=== PATIENT | male | born 1945 | race Caucasian/White ===

== ENCOUNTER 2016-12-30 21:05 | Emergency (ER) | payer OTHER ==
--- NOTE | ~2016-12-30 | CT4 ---
[facility] A Service of [facility] RADIOLOGY TEXT RESULTS PATIENT: ARLEEN MAURICE LOCATION: [facility] : 47 UNIT #: [id number] AGE: [address]: Lora Chavez MD SEX: M ORDER DR: [id number] [facility]. [place], [place] [address] [id number] MR#: [id number] Acc #: [id number] NAME: ARLEEN MAURICE. : 1945 SEX: M STUDY DATE/TIME: 12/31/2016 2:43 UNIT: ALEXA ROOM: STUDY DESCRIPTION: CT Abd and Pelv Wo Cont Attending Physician: Lora Chavez M.D. Ordering Physician: Lora Chavez M.D. Primary Care Physician: No Primary Care Physician MEDICAL IMAGING REPORT This report is preliminary unless electronic signature is present EXAM CT abdomen and pelvis INDICATIONS Urinary tract infection. Pain with urination. Decreased urine output. Left flank pain. TECHNIQUE CT abdomen and pelvis without contrast. Coronal and sagittal reconstructions were obtained. This CT exam was performed with one or more of the following radiation dose reduction techniques: automatic exposure control, adjustment of mA and/or kV according to patient size, and iterative reconstruction. COMPARISON None available. FINDINGS There is emphysema in the lung bases. The kidneys are symmetric in size. There is no hydronephrosis or ureteral calculi. Noncontrasted evaluation of the remaining solid abdominal organs is within normal limits. The gallbladder is surgically absent. The bowel is not dilated. An infrarenal abdominal aortic aneurysm measures 3.3 cm. There are some colonic diverticula. The bowel is not distended. The appendix is at the upper limits of normal; however, there are no inflammatory changes adjacent to the appendix. PELVIS: There is diffuse wall thickening of the urinary bladder. Please correlate with urinalysis to identify cystitis. There are some dystrophic calcific calcifications in the prostate. No enlarged pelvic or inguinal [facility] A Service of [facility] RADIOLOGY TEXT RESULTS PATIENT: ARLEEN MAURICE LOCATION: [facility] : 47 UNIT #: [id number] AGE: [address]: Lora Chavez MD SEX: M ORDER DR: lymph nodes. No acute osseous abnormalities. IMPRESSION 1. Mild wall thickening associated with the urinary bladder. Please correlate for any evidence of cystitis. 2. 3.3-cm infrarenal abdominal aortic aneurysm. 3. Diverticulosis. Dictated by... Allen Gaspar M.D. THIS IS AN ELECTRONICALLY VERIFIED REPORT Allen Gaspar M.D. at 01/01/2017 12:49 AM OMAR/cassi TD: 12/31/2016 16:39 JOB #: [id number] MEDICAL IMAGING REPORT Page 1 of 1 COPY
[~2016-12-30 21:05] MED LIST: ACETAMINOPHEN325 MG PO; ALBUTEROL17 G1 IH; ALBUTEROL17 GM INH; ALPRAZOLAM ER2 MG PO; ALPRAZOLAM PO; AMITRIPTYLINE150 MG PO; AMITRYPTYLINE PO; ANEXSIA 7.5/3251 TA1 PO; CALCIUM; CERTAGEN PO; CIPRO PO; COMBIVENT MININEB INH; GINKO BILOBA; HYDROCODON-ACE1 EAC1 PO; LEVAQUIN; LEVAQUIN PO; LEVAQUIN750 M1 PO; LIPITOR PO; LISINOPRIL PO; LISINOPRIL20 MG PO; LORTAB 7.5-3251 EACH PO; LORTAB 7.5-5001 TAB PO; MEDROL PO; MUCINEX DM1 TAB.SR . PO; OMEPRAZOLE20 M2 PO; OXYCONTIN PO; OXYCONTIN20 MG PO; OXYCONTIN40 MG PO; PROAIR HFA8.5 GM IH; ROBITUSSIN COUG1 CAP PO; SPIRIVA18 MCG INH; SYMBICORT INH; VIT E PO; VITAMIN B-12; XANAX2 MG PO; [UNRECOGNIZED DRUG - REMARK]
[2016-12-31 01:14] LABS: URINE SOURCE CLEAN CATCH
[2016-12-31 01:38] LABS: URINE APPEARANCE CLOUDY; URINE BILIRUBIN NEG (NEG); URINE BLOOD 2+ (NEG); URINE COLOR YELLOW; URINE GLUCOSE 100 MG/DL (NEG); URINE KETONE TRACE (NEG); URINE LEUKOCYTE ESTERASE 2+ (NEG); URINE NITRATE POS (NEG); URINE PH 6.5 (5-8); URINE PROTEIN 2+ (NEG)
[2016-12-31 01:41] LABS: CULTURE INDICATED? YES; URINE BACTERIA AUWI 4+ (NEGATIVE); UWBCS1 AUWI 200-300 (0-5)
[2016-12-31 01:51] LABS: URINE SQUAMOUS EPITHELIAL CELL MODERATE /[HPF]
[2016-12-31 01:57] LABS: URINE CRYSTALS TRIPLE PHOSPHATE /[HPF]
[2016-12-31 01:59] LABS: ALBUMIN SERUM 3.7 g/dL (3.5-5.0); BILIRUBIN,INDIRECT 0.4 mg/dL (0.0-0.9); BILIRUBIN,TOTAL 0.5 mg/dL (0.2-2.0); CALCIUM SERUM 8.8 mg/dL (8.4-10.2); CREATININE SERUM 0.8 mg/dL (0.6-1.4); GLOM FILT RATE Estimated 90.5 mL/min (>60); PROTEIN TOTAL SERUM 6.4 g/dL (6.0-8.3)
[2016-12-31 02:00] LABS: BILIRUBIN, DIRECT 0.1 mg/dL (0.0-0.2)
[2016-12-31 02:22] LABS: BASOPHIL# 0.1 X10e3 (0-0.3); BASOPHIL% 0.8 % (0-2.5); EOSINOPHIL# 0.2 X10e3 (0-0.7); HEMATOCRIT 42.6 % (38.0-50.0); HEMOGLOBIN 13.6 gm/dL (13.0-16.0); LYMPHOCYTE# 1.5 X10e3 (1.0-3.5); LYMPHOCYTE% 16.1 % (17.0-45.0); MEAN CELL VOLUME 92.8 FL (83-96); MEAN CORPUSCULAR HEMOGLOBIN 29.6 PG (28-34); MEAN CORPUSCULAR HGB CONC 31.9 g/dL (30-36); MEAN PLATELET VOLUME 7.7 FL (6.5-11.5); MONOCYTE# 0.7 X10e3 (0-1.0); MONOCYTE% 7.4 % (3.0-12.0); NEUTROPHIL# 6.7 X10e3 (1.5-7.1); NEUTROPHIL% 73.7 % (40-75); PLATELET COUNT 299 X10e3 (140-420); RED BLOOD COUNT 4.59 X10e (3.90-5.60); RED CELL DISTRIBUTION WIDTH 14.4 % (11.0-15.5); WHITE BLOOD COUNT 9.1 X10e3 (4.0-10.5)
[2016-12-31 02:39] LABS: DIFF IND NO
== END 2016-12-31 04:30 | disposition home or self-care (01) ==
LOC: CED 21:05
DX: N30.90 Cystitis, unspecified without hematuria (principal); J44.9 Chronic obstructive pulmonary disease, unspecified; G89.29 Other chronic pain; F17.200 Nicotine dependence, unspecified, uncomplicated; Z90.49 Acquired absence of other specified parts of digestive tract
CPT/HCPCS: 36415; 74176; 80048; 80076; 81003; 83690; 85025; 87040; 87086; 96361; 96365; 96375; 99284; J0696; J1170; J2270; J2405